=== PATIENT | male | born 1955 | race Caucasian/White ===

== ENCOUNTER 2016-09-21 11:27 | Emergency (ER) | payer OTHER ==
[~2016-09-21] VITALS: Ht 185.4 cm; Wt 85.7 kg
[2016-09-21 11:30] VITALS: BP 158/83; PULSE 66; RESP 16; TEMP 98.2; O2SAT 98
[2016-09-21] MEDS ORDERED: ACETAMINOPHEN 500 MG CPLT PO ONE (12:15)
--- NOTE | 2016-09-21 12:36 | PD ---
HPI Chief Complaint: Fall Time Seen by Provider: 11:47 Travel History International Travel<30 days: No Contact w/Intl Traveler<30days: No Traveled to known affect area: No History of Present Illness HPI This is a 60-year-old male who presents to the emergency department having fallen off of a 4 foot deck, hitting his head, hand and right knee. He reports moderate severity pain in his head on the right side, constant, associated with neck pain and swelling and pain in his right hand knee. He is not sure if he lost consciousness at the time and has not vomited. He denies any chest pain or abdominal pain. PFSH Past Medical History Diabetes: Yes (diet control) Patient Takes Glucophage: No Past Surgical History Appendectomy: Yes Ear Surgery: Yes Social History Alcohol Use: No Tobacco Use: No Substance Use: No Allergies-Medications (Allergen,Severity, Reaction): Coded Allergies: Penicillin (Verified Allergy, Unknown, 09/21/16) Reported Meds & Prescriptions Reported Meds & Active Scripts Active No Active Prescriptions or Reported Medications Review of Systems Except as stated in HPI: all other systems reviewed are Neg Physical Exam Narrative GENERAL:Well appearing, no acute distress SKIN: Abrasions on the forehead and face. Ecchymoses over the right thenar eminence. HEAD: Atraumatic. Normocephalic. EYES: Pupils equal and round. No injection or drainage. ENT: Moist mucous membranes NECK: Trachea midline. Diffuse cervical spine tenderness. CARDIOVASCULAR: Regular rate and rhythm. No murmur appreciated. 2+ right radial pulse with normal capillary refill. RESPIRATORY: Clear to auscultation. Breath sounds equal bilaterally. GASTROINTESTINAL: Abdomen soft, non-tender, nondistended. MUSCULOSKELETAL: Effusion of the right knee, tender to palpation over the patella. Tender to palpation over the thenar eminence of the right hand with no snuffbox tenderness. No tenderness over the thoracic or lumbar spine. NEUROLOGICAL: Awake and alert. No obvious cranial nerve deficits. Moving all extremities. PSYCHIATRIC: Appropriate mood and affect; insight and judgment normal. Data Data Last Documented VS Vital Signs Date Time Temp Pulse Resp B/P Pulse Ox O2 Delivery O2 Flow Rate FiO2 09/21/16 11:30 98.2 66 16 158/[address] Brain W/O Iv Contrast(Rout) (09/21/16 ) Ct Cerv Spine W/O Contrast (09/21/16 ) Hand, Complete (Dsr2qvd) (09/21/16 ) Knee, Complete (4vws) (09/21/16 ) Acetaminophen (Tylenol) (09/21/16 12:15) MDM Medical Decision Making Medical Screen Exam Complete: Yes Emergency Medical Condition: Yes Interpretation(s) Afebrile, no tachycardia, hypertensive Last 24 hours Impressions Knee X-Ray 09/21/16 0000 Signed Impressions: Service Date/Time: August 12:45 - CONCLUSION: Negative trauma study. Ramon Chow MD Head CT 09/21/16 0000 Signed Impressions: Service Date/Time: August 12:46 - CONCLUSION: 1. No acute hemorrhage or mass effect. 2. Mucosal thickening and retention cyst in the right sphenoid sinus. Ramon Chow MD Hand X-Ray 09/21/16 0000 Signed Impressions: Service Date/Time: August 12:43 - CONCLUSION: Negative trauma study. Ramon Chow MD Cervical Spine CT 09/21/16 0000 Signed Impressions: Service Date/Time: August 12:46 - CONCLUSION: Negative trauma CT. Ramon Chow MD Differential Diagnosis Intracranial hemorrhage, cervical spine fracture, patellar fracture, first metacarpal fracture Narrative Course This is a 60-year-old male who sustained a significant fall who presents to the emergency department with head and neck pain as well as a hand and knee injury. CTs and x-rays were obtained which were all reassuring. I think patient is safe for discharge home. Diagnosis Primary Impression: Closed head injury Qualified Code: S09.90XA - Closed head injury, initial encounter Patient Instructions: General Instructions Additional Instructions: If you develop headache, difficulty walking, difficulty talking, weakness, numbness, lightheadedness or severe pain return to the emergency department. It is common to have sore muscles following an accident. Take ibuprofen or Aleve as needed for pain. Med/Other Pt SpecificInfo: No Change to Meds Scripts No Active Prescriptions or Reported Meds Disposition: 01 DISCHARGE HOME Condition: Stable Julia Valenzuela MD Sep 21, 2016 12:36
--- NOTE | 2016-09-21 13:24 | RADHPO ---
EXAM DATE/TIME: 09/21/2016 12:43 [facility] COMPARISON: No previous studies available for comparison. INDICATIONS : Right posterior/medial hand abrasion/pain post fall from deck. MEDICAL HISTORY : Diabetic. SURGICAL HISTORY : Appendectomy. Ear surgery. ENCOUNTER: Initial ACUITY: 1 day PAIN SCORE: 8/10 LOCATION: Right hand FINDINGS: Three view examination of the right hand demonstrates no soft tissue swelling, dislocation, or fractu re. The carpal bones appear intact. The interphalangeal and metacarpophalangeal joints are intact. Bony mineralization is normal. CONCLUSION: Negative trauma study. Ramon Chow MD on September 21, 2016 at 13:21 Board Certified Radiologist. This report was verified electronically.
--- NOTE | 2016-09-21 13:25 | RADHPO ---
EXAM DATE/TIME: 09/21/2016 12:46 [facility] COMPARISON: No previous studies available for comparison. INDICATIONS : Trauma. Fall. RADIATION DOSE: 65.88 CTDIvol (mGy) MEDICAL HISTORY : Diabetes mellitus type 2. SURGICAL HISTORY : Appendectomy. ENCOUNTER: Initial ACUITY: 1 day PAIN SCALE: 5/10 LOCATION: cranial TECHNIQUE: Multiple contiguous axial images were obtained of the head. Using automated exposure control and adj ustment of the mA and/or kV according to patient size, radiation dose was kept as low as reasonably a chievable to obtain optimal diagnostic quality images. FINDINGS: CEREBRUM: The ventricles are normal for age. No evidence of midline shift, mass lesion, hemorrhage or acute in farction. No extra-axial fluid collections are seen. POSTERIOR FOSSA: The cerebellum and brainstem are intact. The 4th ventricle is midline. The cerebellopontine angle i s unremarkable. EXTRACRANIAL: The visualized portion of the orbits is intact. There is mucosal thickening and retention cyst in the right sphenoid sinus. SKULL: The calvaria is intact. No evidence of skull fracture. CONCLUSION: 1. No acute hemorrhage or mass effect. 2. Mucosal thickening and retention cyst in the right sphenoid sinus. Ramon Chow MD on September 21, 2016 at 13:23 Board Certified Radiologist. This report was verified electronically.
--- NOTE | 2016-09-21 13:27 | RADHPO ---
EXAM DATE/TIME: 09/21/2016 12:46 [facility] COMPARISON: No previous studies available for comparison. INDICATIONS : Trauma. Fall. RADIATION DOSE: 26.59 CTDIvol (mGy) MEDICAL HISTORY : Diabetes mellitus type 2. SURGICAL HISTORY : Appendectomy. ENCOUNTER: Initial ACUITY: 1 day PAIN SCALE: 4/10 LOCATION: neck TECHNIQUE: Volumetric scanning of the cervical spine was performed. Multiplanar reconstructions i n the sagittal, coronal and oblique axial planes were performed. Using automated exposure control a nd adjustment of the mA and/or kV according to patient size, radiation dose was kept as low as reason ably achievable to obtain optimal diagnostic quality images. FINDINGS: The sagittal reconstructions demonstrate normal alignment and normal prevertebral soft tissues. The d ens is intact and there is a normal atlantoaxial relationship. The axial images demonstrate that the vertebral bodies and posterior elements are intact. The soft ti ssues are within normal limits. There is no evidence of acute fracture or malalignment. CONCLUSION: Negative trauma CT. Ramon Chow MD on September 21, 2016 at 13:24 Board Certified Radiologist. This report was verified electronically.
--- NOTE | 2016-09-21 13:57 | RADHPO ---
EXAM DATE/TIME: 09/21/2016 12:45 [facility] COMPARISON: No previous studies available for comparison. INDICATIONS : Right anterior/lateral knee abrasion/pain post fall from deck. MEDICAL HISTORY : Diabetic. SURGICAL HISTORY : Appendectomy. Ear surgery. ENCOUNTER: Initial ACUITY: 1 day PAIN SCORE: 8/10 LOCATION: Right knee FINDINGS: Four view examination of the right knee demonstrates no evidence of fracture or dislocation. Bony mi neralization is normal. The articular surfaces are intact. The suprapatellar soft tissues have a no rmal configuration. CONCLUSION: Negative trauma study. Ramon Chow MD on September 21, 2016 at 13:55 Board Certified Radiologist. This report was verified electronically.
[2016-09-21 14:29] VITALS: BP 138/85; PULSE 68; RESP 16; O2SAT 97
[2016-09-21] MEDS ORDERED: TETANUS/DIPHTHERIA TOXOID ADULT 0.5 ML VIAL IM ONE (14:30)
[2016-09-21 14:34] VITALS: RESP 16
== END 2016-09-21 14:41 | disposition home or self-care (01) ==
LOC: PHED 11:27
DX: S09.90XA Unspecified injury of head, initial encounter (principal); S00.81XA Abrasion of other part of head, initial encounter; M54.2 Cervicalgia; M25.561 Pain in right knee; E11.9 Type 2 diabetes mellitus without complications; W17.89XA Other fall from one level to another, initial encounter; Y92.009 Unspecified place in unspecified non-institutional (private) residence as the place of occurrence of the external cause; Z23 Encounter for immunization
CPT/HCPCS: 70450; 72125; 73130; 73564; 90471; 90714

== ENCOUNTER 2016-09-23 08:29 | Emergency (ER) | payer OTHER ==
[~2016-09-23] VITALS: Ht 198.1 cm; Wt 86.0 kg
[2016-09-23 08:33] VITALS: BP 144/88; PULSE 68; RESP 19; TEMP 98.3; O2SAT 99
--- NOTE | 2016-09-23 08:54 | PD ---
HPI Chief Complaint: Dizziness Time Seen by Provider: 08:42 Travel History International Travel<30 days: No Contact w/Intl Traveler<30days: No Traveled to known affect area: No History of Present Illness HPI 60-year-old male seen in the emergency department 2 days ago after a fall from a height of about 4 feet onto his face, here for evaluation of dizziness. Patient had CT head, CT cervical spine, right hand x-ray, and right knee x-ray at that time, all of which were reassuring. The patient states that for the last day and a half he has been experiencing dizziness, nausea, and vomiting. Symptoms are made worse with movements, slightly better with rest. No paresthesias or motor deficits. No visual disturbances. He is also complaining of persistent neck discomfort. No fevers or chills. PFSH Past Medical History Diabetes: Yes Patient Takes Glucophage: No Diminished Hearing: No Tetanus Vaccination: < 5 Years Past Surgical History Appendectomy: Yes Ear Surgery: Yes Social History Alcohol Use: No Tobacco Use: No Substance Use: No Allergies-Medications (Allergen,Severity, Reaction): Coded Allergies: Penicillin (Verified Allergy, Unknown, 09/23/16) Reported Meds & Prescriptions Reported Meds & Active Scripts Active Zofran Odt (Ondansetron Odt) 4 Mg Tab 4 Mg SL Q8HR PRN Meclizine (Meclizine HCl) 25 Mg Tab 25 Mg PO DIRECTED PRN Review of Systems Except as stated in HPI: all other systems reviewed are Neg Physical Exam Narrative GENERAL: Well-developed, well-nourished, awake, alert, GCS 15, no acute distress. SKIN: Focused skin assessment warm/dry. Healing abrasions on forehead and right face. HEAD: Atraumatic. Normocephalic. EYES: Pupils equal, round, 3 mm, reactive to light. EOMI. Mild horizontal nystagmus. No vertical nystagmus. No scleral icterus. No injection or drainage. ENT: No nasal bleeding or discharge. Mucous membranes pink and moist. Right tympanic membrane and external auditory canals normal. Left external auditory canals normal. There is mild cerumen impaction making left TM unable to be visualized. NECK: Trachea midline. No JVD. No nuchal rigidity. CARDIOVASCULAR: Regular rate and rhythm. RESPIRATORY: No accessory muscle use. Clear to auscultation. Breath sounds equal bilaterally. GASTROINTESTINAL: Abdomen soft, non-tender, nondistended. MUSCULOSKELETAL: No obvious deformities. No clubbing. No cyanosis. No edema. NEUROLOGICAL: Awake and alert. No obvious cranial nerve deficits. Motor grossly within normal limits. Normal speech. PSYCHIATRIC: Appropriate mood and affect; insight and judgment normal. Data Data Last Documented VS Vital Signs Date Time Temp Pulse Resp B/P Pulse Ox O2 Delivery O2 Flow Rate FiO2 09/23/16 11:16 68 16 148/87 95 Room Air 09/23/16 08:33 98.3 Orders Basic Metabolic Panel (Bmp) (09/23/16 08:50) Complete Blood Count With Diff (09/23/16 08:50) Iv Access Insert/Monitor (09/23/16 08:50) Ecg Monitoring (09/23/16 08:50) Oximetry (09/23/16 08:50) Sodium Chloride 0.9% Flush (Ns Flush) (09/23/16 09:00) Electrocardiogram (09/23/16 08:50) Sodium Chlor 0.9% 1000 Ml Inj (Ns 1000 M (09/23/16 09:00) Metoclopramide Inj (Reglan Inj) (09/23/16 09:00) Meclizine (Antivert) (09/23/16 09:00) Ct Brain W/O Iv Contrast(Rout) (09/23/16 ) Mri Brain W&W/O Contrast (09/23/16 ) Mra Brain W/O Contrast (Cow) (09/23/16 ) Mra Carotids W Contrast (09/23/16 ) Gadodiamide Pf Inj (Omniscan Pf Inj) (09/23/16 11:36) Labs Laboratory Tests Test 09/23/16 08:55 White Blood Count 7.6 TH/MM3 Red Blood Count 5.22 MIL/MM3 Hemoglobin 15.2 GM/DL Hematocrit 45.2 % Mean Corpuscular Volume 86.7 FL Mean Corpuscular Hemoglobin 29.1 PG Mean Corpuscular Hemoglobin 33.6 % Concent Red Cell Distribution Width 12.2 % Platelet Count 241 TH/MM3 Mean Platelet Volume 8.3 FL Neutrophils (%) (Auto) 69.4 % Lymphocytes (%) (Auto) 17.4 % Monocytes (%) (Auto) 9.2 % Eosinophils (%) (Auto) 1.4 % Basophils (%) (Auto) 2.6 % Neutrophils # (Auto) 5.2 TH/MM3 Lymphocytes # (Auto) 1.3 TH/MM3 Monocytes # (Auto) 0.7 TH/MM3 Eosinophils # (Auto) 0.1 TH/MM3 Basophils # (Auto) 0.2 TH/MM3 CBC Comment DIFF FINAL Differential Comment Sodium Level 140 MEQ/L Potassium Level 4.2 MEQ/L Chloride Level 100 MEQ/L Carbon Dioxide Level 28.0 MEQ/L Anion Gap 12 MEQ/L Blood Urea Nitrogen 12 MG/DL Creatinine 0.79 MG/DL Estimat Glomerular Filtration 100 ML/MIN Rate Random Glucose 293 MG/DL Calcium Level 8.6 MG/DL MDM Medical Decision Making Medical Screen Exam Complete: Yes Emergency Medical Condition: Yes Medical Record Reviewed: Yes Interpretation(s) EKG: Sinus, rate 64, normal axis, normal intervals, no acute ischemic abnormality. Differential Diagnosis Vertigo, cerebral edema, intracranial hemorrhage, concussion, metabolic abnormality, anemia, Narrative Course Vital signs show heart rate 68, blood pressure 144/88, pulse ox 99% on room air , oral temp of 98.3F. CBC is unremarkable. BMP is remarkable for random glucose 293, otherwise unremarkable. CT head: No acute disease. Patient was made aware of all findings. He was given meclizine and antiemetics and is still feeling dizzy. Dizziness is made much worse when he sits up. Given persistent dizziness, MRI/MRI will be ordered to rule out VBI/mass/ possible carotid dissection. MRI brain: Normal exam. MRA brain with cervical Perales: Normal exam. MRA neck/carotids: Normal exam. Patient was made aware of all findings. He is resting comfortably. He is feeling slightly improved, however does get somewhat dizzy when he goes from sitting to standing. He is able to ambulate. I believe he is stable for discharge home with outpatient follow-up with a primary care physician this week. He is aware of his elevated blood sugar and states that he has been told that he has had this in the past, however is currently not on any treatment. He is in the process of finding a primary care physician with whom to follow-up with. I will given the name of the neurologist on-call to follow-up with this week. His symptoms are likely secondary to concussion from his closed head injury/fall 2 days ago. He was informed on when to return to the emergency department. Both the patient and the patient's verbalize understanding and agreement with plan. Diagnosis Primary Impression: Dizziness Additional Impressions: Concussion Qualified Code: S06.0X9A - Concussion, with LOC of unspecified duration, initial encounter Hyperglycemia Referrals: Randall Dao PhD MD 3 days Neurologist Primary Care Physician 3 days Additional Instructions: Follow-up with a primary care physician this week. Follow-up with neurologist Dr. Dao or a neurologist of your choice this week. Return to the emergency department for worsening symptoms or any other concerns. Scripts Ondansetron Odt (Zofran Odt)4 Mg Tab4 Mg SL Q8HR PRN (Nausea/Vomiting) #30 TAB Ref 0 Prov:Ian Kumari MD 09/23/16 Meclizine 25 Mg Tab25 Mg PO DIRECTED PRN (VERTIGO) #20 TAB Ref 0 Prov:Ian Kumari MD 09/23/16 Disposition: 01 DISCHARGE HOME Condition: Stable Ian Kumari MD Sep 23, 2016 08:54
[2016-09-23 08:57] VITALS: RESP 16; O2SAT 99
[2016-09-23] MEDS ORDERED: MECLIZINE HCL 25 MG TAB PO ONE (09:00)
[2016-09-23] MEDS ORDERED: METOCLOPRAMIDE HCL 10 MG/2 ML VIAL IV PUSH ONE (09:00)
[2016-09-23] MEDS ORDERED: SODIUM CHLOR 0.9% 1000 ML INJ 1,000 ML IV ONE (09:00)
[2016-09-23] MEDS ORDERED: SODIUM CHLORIDE 0.9% FLUSH 10 ML FLUSH IV FLUSH PRN (09:00)
[2016-09-23 09:03] LABS: AUTOMATED NEUTROPHIL # 5.2 TH/MM3 (1.8-7.7); BASOPHIL # 0.2 TH/MM3 (0-0.2); BASOPHIL % 2.6 % (0.0-2.0); EOSINOPHIL # 0.1 TH/MM3 (0-0.4); EOSINOPHIL % 1.4 % (0.0-4.0); HEMATOCRIT 45.2 % (39.0-51.0); HEMO FLAGS DIFF FINAL; LYMPH % 17.4 % (9.0-44.0); LYMPHOCYTE # 1.3 TH/MM3 (1.0-4.8); MEAN CELL VOLUME 86.7 FL (80.0-100.0); MEAN CORPUSCULAR HEMOGLOBIN 29.1 PG (27.0-34.0); MEAN CORPUSCULAR HGB CONC 33.6 % (32.0-36.0); MONO % 9.2 % (0.0-8.0); NEUT % 69.4 % (16.0-70.0); PLATELET COUNT 241 TH/MM3 (150-450); RED BLOOD COUNT 5.22 MIL/MM3 (4.50-5.90); RED CELL DISTRIBUTION WIDTH 12.2 % (11.6-17.2); WHITE BLOOD COUNT 7.6 TH/MM3 (4.0-11.0)
[2016-09-23 09:06] LABS: POTASSIUM 4.2 MEQ/L (3.5-5.1)
--- NOTE | 2016-09-23 09:34 | RADHPO ---
EXAM DATE/TIME: 09/23/2016 09:10 [facility] COMPARISON: CT BRAIN W/O CONTRAST, September 21, 2016, 12:46. INDICATIONS : Dizziness and cephalgia status post fall with abrasion to forehead two days ago. RADIATION DOSE: 59.30 CTDIvol (mGy) MEDICAL HISTORY : diabetes SURGICAL HISTORY : Appendectomy. ear surgery ENCOUNTER: Initial ACUITY: 2 days PAIN SCALE: 3/10 LOCATION: Bilateral head TECHNIQUE: Multiple contiguous axial images were obtained of the head. Using automated exposure control and adj ustment of the mA and/or kV according to patient size, radiation dose was kept as low as reasonably a chievable to obtain optimal diagnostic quality images. FINDINGS: No hemorrhage, infarct, or mass. Mucous retention cyst right sphenoid sinus. There is evidence of pre vious left mastoidectomy defect containing soft tissue and air. No fractures. CONCLUSION: No acute disease. Fausto Jacob MD on September 23, 2016 at 9:31 Board Certified Radiologist. This report was verified electronically.
[2016-09-23 11:16] VITALS: BP 148/87; PULSE 68; RESP 16; O2SAT 95
[2016-09-23] MEDS ORDERED: GADODIAMIDE PF 287 MG/ML 20 ML VIAL (for RAD MRI) IV ONE (11:36)
--- NOTE | 2016-09-23 12:01 | RADHPO ---
EXAM DATE/TIME: 09/23/2016 11:34 [facility] COMPARISON: CT BRAIN W/O CONTRAST, September 23, 2016, 9:10. INDICATIONS : Dizziness. MEDICAL HISTORY : None. SURGICAL HISTORY : Appendectomy. Ear drum repair ENCOUNTER: Initial ACUITY: 1 day PAIN SCORE: 0/10 LOCATION: cranial Please note a normal MRA of the brain does not entirely exclude the possibility of a small aneurysm, nor the possibility of distal intracranial vessel disease. TECHNIQUE: 3D time of flight MRA was performed. Source images, multiplanar STS MIP, and 3D volume MIP reconstru ctions were reviewed. FINDINGS: There is excellent visualization of the major intracranial arteries out to the second-order branch ve ssels. There is no evidence for aneurysm, vessel truncation or stenosis, and no evidence for vascula r malformation. CONCLUSION: Normal examination. Fausto Jacob MD on September 23, 2016 at 11:59 Board Certified Radiologist. This report was verified electronically.
--- NOTE | 2016-09-23 12:21 | RADHPO ---
EXAM DATE/TIME: 09/23/2016 11:34 [facility] COMPARISON: MRA BRAIN W/O CONTRAST, September 23, 2016, 11:34. CT BRAIN W/O CONTRAST, September 23, 2016, 9:10. INDICATIONS : Dizziness. CONTRAST: 20 cc Omniscan (gadodiamide) IV MEDICAL HISTORY : None. SURGICAL HISTORY : Appendectomy. Ear drum repair ENCOUNTER: Initial ACUITY: 3 day PAIN SCORE: 0/10 LOCATION: cranial TECHNIQUE: Multiplanar, multisequence MRI of the brain was performed both prior to and following the administrat ion of paramagnetic contrast. FINDINGS: CEREBRUM: The ventricles are normal for age. No evidence of midline shift, mass lesion, hemorrhage or acute in farction. No extraaxial fluid collections are seen. The pituitary gland and suprasellar cistern are normal in configuration. WHITE MATTER: No significant signal abnormalities are seen in the white matter. POSTERIOR FOSSA: The cerebellum and brainstem are intact. The 4th ventricle is midline. The cerebellopontine angle is unremarkable. The cerebellar tonsils are normal in position. DIFFUSION IMAGING: No focal areas of restricted diffusion are seen. No evidence of acute infarction. EXTRACRANIAL: The visualized portions of the orbits and paranasal sinuses are unremarkable. POST-CONTRAST: No abnormal areas of parenchymal or dural enhancement. No evidence of blood-brain barrier breakdown. CONCLUSION: Normal examination. Fausto Jacob MD on September 23, 2016 at 12:18 Board Certified Radiologist. This report was verified electronically.
--- NOTE | 2016-09-23 12:22 | RADHPO ---
EXAM DATE/TIME: 09/23/2016 11:34 [facility] COMPARISON: MRA BRAIN W/O CONTRAST, September 23, 2016, 11:34. MRI BRAIN W & W/O CONTRAST, September 23, 2016, 11:34. CT BRAIN W/O CONTRAST, September 23, 2016, 9:10. INDICATIONS : Dizziness. CONTRAST: 20 cc Omniscan (gadodiamide) IV MEDICAL HISTORY : None. SURGICAL HISTORY : Appendectomy. Ear drum repair ENCOUNTER: Initial ACUITY: 1 day PAIN SCORE: 0/10 LOCATION: neck Percent stenosis is calculated using the diameter of the stenotic region over the diameter of the nor mal distal internal carotid artery. TECHNIQUE: Bolus infused MRA of the extracranial circulation was performed using a neurovascular coil. Post pro cessing was performed including rotating subvolume maximum intensity projections of each carotid pat ry, rotating full volume maximum intensity projections of both carotid arteries, sagittal and coronal sliding thin slab reformations of each carotid artery, and left oblique sliding thin slab reformatio n through the aortic arch to include the origin of the arch branch vessels. FINDINGS: AORTIC ARCH: There is a three vessel origin of the great vessels from the aorta. No evidence of ostial narrowing. RIGHT CAROTID: The common carotid artery is intact. The carotid bulb has a normal configuration without ulceration or narrowing. The internal carotid artery lumen is smooth without stenosis. The external carotid ar jack is intact. LEFT CAROTID: The common carotid artery is intact. The carotid bulb has a normal configuration without ulceration or narrowing. The internal carotid artery lumen is smooth without stenosis. The external carotid ar jack is intact. VERTEBRALS: The vertebral arteries have a symmetric diameter. No stenotic lesions are seen. CONCLUSION: Normal examination. Fausto Jacob MD on September 23, 2016 at 12:19 Board Certified Radiologist. This report was verified electronically.
[2016-09-23] MEDS ORDERED: MECL-62 PO (12:38)
[2016-09-23] MEDS ORDERED: ZOFR4TAB3 SL (12:38)
[2016-09-23 13:00] VITALS: BP 146/86
--- NOTE | 2016-09-23 19:00 | EKG ---
Date Performed: 09/23/2016 Time Performed: 08:52:24 PTAGE: 60 years EKG: Sinus rhythm Normal ECG NO PREVIOUS TRACING DOCTOR: Lucy Iyer Interpretating Date/Time 09/23/2016 18:58:08
== END 2016-09-23 13:03 | disposition home or self-care (01) ==
LOC: PHED 08:29
DX: S06.0X9A Concussion with loss of consciousness of unspecified duration, initial encounter (principal); E11.65 Type 2 diabetes mellitus with hyperglycemia; W17.89XA Other fall from one level to another, initial encounter
CPT/HCPCS: 70450; 70544; 70548; 70553; 80048; 85025; 93005; 96361; 96374; 99284; A9579; J2765; J7030